=== PATIENT | female | born 2000 | race Caucasian/White ===

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

== ENCOUNTER 2021-04-22 20:20 | Emergency (ER) | payer OTHER ==
[~2021-04-22] VITALS: Ht 167.6 cm; Wt 78.0 kg
[2021-04-22] MEDS ORDERED: ACETAMINOPHEN 325MG TABLET PO ONE (22:45)
[2021-04-22] MEDS ORDERED: TOPUD PO (22:46)
[2021-04-22 23:15] VITALS: BP 100/35
== END 2021-04-22 23:15 | disposition home or self-care (01) ==
LOC: ER 20:20
DX: O98.512 Other viral diseases complicating pregnancy, second trimester (principal); U07.1 COVID-19; B34.9 Viral infection, unspecified; Z3A.18 18 weeks gestation of pregnancy; Z79.899 Other long term (current) drug therapy
CPT/HCPCS: 87804; 99283; C9803; U0003; U0005

== ENCOUNTER 2021-08-31 18:42 | Observation (INO) | payer OTHER ==
[~2021-08-31] VITALS: Ht 167.6 cm; Wt 97.5 kg
[~2021-08-31 18:42] MED LIST changes: +TOPUD PO
[2021-08-31] MEDS ORDERED: PREN1TAB78 PO ×2 (21:13→21:15)
[2021-08-31] MEDS ORDERED: FERR-71 PO (21:15)
== END 2021-08-31 21:34 | disposition home or self-care (01) ==
LOC: 8 EST LDRP 18:42
PROVIDERS: ADMIT Obstetrics & Gynecology; ATTEND Obstetrics & Gynecology
DX: O46.93 Antepartum hemorrhage, unspecified, third trimester (principal); O26.893 Other specified pregnancy related conditions, third trimester; R10.9 Unspecified abdominal pain; Z3A.34 34 weeks gestation of pregnancy
CPT/HCPCS: 76815; 76818; 99281; G0378; 59025; G0379

== ENCOUNTER 2024-10-20 17:01 | Emergency (ER) | payer MEDICAID, OTHER ==
[~2024-10-20] VITALS: Ht 165.1 cm; Wt 77.0 kg
[~2024-10-20 17:01] MED LIST changes: +FERR-71 PO; -PRED15SO23 PO; +PREN1TAB78 PO
[2024-10-20 17:04] VITALS: BP 110/58; TEMP 36.8; O2SAT 98
[2024-10-20 18:00] VITALS: PULSE 86; RESP 16; O2SAT 99
[2024-10-20 19:05] LABS: CLARITY URINE CLEAR (CLEAR); COLOR URINE YELLOW (YELLOW); GLUCOSE URINE NEGATIVE (NEGATIVE); KETONES URINE TRACE (NEGATIVE); LEUKOCYTE ESTERASE URINE 3+ (NEGATIVE); NITRITE URINE NEGATIVE (NEGATIVE); OCCULT BLOOD URINE NEGATIVE (NEGATIVE); PROTEIN URINE NEGATIVE (NEGATIVE); SPECIFIC GRAVITY URINE 1.029 (1.005-1.030); UROBILINOGEN URINE 0.2 E.U./dL (0.2-1.0)
[2024-10-20 19:15] LABS: BACTERIA URINE TRACE; SQUAMOUS EPITHELIAL CELL URINE FEW /lpf (RARE/1+)
[2024-10-20] MEDS: CEFTRIAXONE SODIUM 500MG VIAL IM ONE (19:37)
[2024-10-20] MEDS: LIDOCAINE HCL/PF 1% 10 MG/ML 5ML VIAL INFIL ONE (19:37)
[2024-10-20] MEDS ORDERED: METR-167 MT (20:15)
[2024-10-20] MEDS ORDERED: FLUC150T46 MT (20:15)
[2024-10-20] MEDS ORDERED: CLOT21CR4 VG (20:15)
[2024-10-20] MEDS ORDERED: DOXY-461 MT (20:15)
[2024-10-24 04:07] LABS: CHLAMYDIA TRACHOMATIS NAA Negative (Negative); NEISSERIA GONORRHOEAE NAA Negative (Negative)
== END 2024-10-20 21:44 | disposition home or self-care (01) ==
LOC: ER 17:01
DX: N72 Inflammatory disease of cervix uteri (principal); N76.0 Acute vaginitis; F12.90 Cannabis use, unspecified, uncomplicated; Z79.899 Other long term (current) drug therapy
CPT/HCPCS: 99283; 86592; 87491; 87591; 81003; 81025; 87086; 87210; 36415; 96372; J0696; J2003